=== PATIENT | male | born 1990 | race African-American/Black ===

== ENCOUNTER 2023-03-30 05:27 | Emergency (ER) | payer MEDICAID ==
[~2023-03-30] VITALS: Ht 172.7 cm; Wt 76.5 kg
[2023-03-30 05:34] VITALS: BP 165/98; PULSE 86; RESP 16; TEMP 98.2; O2SAT 98
== END 2023-03-30 09:14 | disposition left against medical advice (07) ==
LOC: ER 05:27
DX: R06.02 Shortness of breath (principal); Z53.21 Procedure and treatment not carried out due to patient leaving prior to being seen by health care provider
CPT/HCPCS: 99281